=== PATIENT | female | born 1955 | race Caucasian/White ===

== ENCOUNTER 2017-01-02 09:55 | Day surgery (SDC) | payer BC ==
[2017-01-02] MEDS ORDERED: IV START KIT ONE (10:53)
[2017-01-02] MEDS ORDERED: LACTATED RINGERS 1,000 ML ONE (10:53)
[2017-01-02] MEDS ORDERED: PROPOFOL 40 ML IV ONE (11:32)
--- NOTE | 2017-01-07 12:10 | SURGPATH ---
[facility] [address] [place] [id number] Patient Name: NOHEMI JONES MR#: [id number] : 1955 Gender: F Specimen #: [id number] Collected: 01/02/2017 Received: 01/06/2017 Reported: 01/07/2017 Submitting Phys: YARON DONIS Copy To Phys: AMOR SALAZAR [facility] Clinical History / Pre-Operative Diagnosis: DIAGNOSTIC COLONOSCOPY; PERSONAL HISTORY OF POLYPS Specimen Source / Surgical Procedure Performed: HEPATIC FLEXURE POLYP Interpretation: COLON, HEPATIC FLEXURE POLYP, BIOPSY: - TUBULAR ADENOMA Electronically Signed Out Maricruz Kan M.D. Gross Description: The specimen is received in a formalin filled container labeled with the patient's name and "hepatic flexure". A polypoid fernandez biopsy is 0.4 x 0.3 x 0.3 cm. Totally embedded in one cassette. Deep Seth, PMosheAMoshe Microscopic Description: Sections show fragments of adenomatous colonic mucosa without high grade dysplasia. 1: 41539 D12.3
== END 2017-01-02 13:35 | disposition home or self-care (01) ==
LOC: SDC 09:55
PROVIDERS: ATTEND Surgery
PROC: 0DBL8ZX Excision of Transverse Colon, Via Natural or Artificial Opening Endoscopic, Diagnostic (ICD-10-PCS; principal; 2017-01-02)
DX: Z12.11 Encounter for screening for malignant neoplasm of colon (principal); D12.3 Benign neoplasm of transverse colon; K57.30 Diverticulosis of large intestine without perforation or abscess without bleeding; Z86.010 Personal history of colon polyps; I10 Essential (primary) hypertension; E78.5 Hyperlipidemia, unspecified; E66.9 Obesity, unspecified; Z68.37 Body mass index [BMI] 37.0-37.9, adult; Z88.0 Allergy status to penicillin; Z88.1 Allergy status to other antibiotic agents